=== PATIENT | male | born 1945 | race Caucasian/White ===

== ENCOUNTER 2020-07-09 21:35 | Inpatient (IN) | payer MEDICARE, OTHER ==
[2020-07-09] MEDS ORDERED: Dextrose 5% in Water 1,000 ML IV PRN (21:48)
[2020-07-09] MEDS ORDERED: Senokot S 8.6-50 MG TAB PO PRN (21:48)
[2020-07-09] MEDS ORDERED: Calcium Carbonate 500 MG ChewTAB PO PRN (21:48)
[2020-07-09] MEDS ORDERED: Guaifenesin DM 100-10/5 ML UDCUP PO PRN (21:48)
[2020-07-09] MEDS ORDERED: Acetaminophen 325 MG TAB PO PRN (21:48)
[2020-07-09] MEDS ORDERED: Dextrose 50% Abboject 50 ML SYRINGE SLOW IVP PRN (21:48)
[2020-07-09] MEDS ORDERED: Ondansetron PF 4 MG/2 ML Vial IVP PRN (21:48)
[2020-07-09] MEDS ORDERED: HYDROcodone/Acetaminophen 5/325 mg Tablet PO PRN ×2 (21:48)
[2020-07-09] MEDS ORDERED: Cyclobenzaprine 10 MG TAB PO SCH (22:00)
[2020-07-09 22:10] VITALS: BMI 25.7
[2020-07-09] MEDS: Sodium Chloride 0.9% 1,000 ML IV SCH (22:39)
[2020-07-10 01:06] LABS: SARS-CoV-2 NAA Rapid Test Not Detected (NotDetected)
[2020-07-10] MEDS: cefTRIAXone\\ROCEPHIN 2 GM in Sodium Chloride 0.9% 100 ML IVPB SCH ×2 (03:24→14:15)
[2020-07-10 04:34] LABS: #Basophils 0.1 10x3/uL (0.0-0.2); #Eosinphils 0.1 10x3/uL (0.0-0.5); #Neutrophils 8.1 10x3/uL (1.5-8.4); %Basophils 0.5 % (0.0-2.0); %Lymphocytes 19.5 % (18.0-47.0); %Monocytes 8.6 % (0.0-10.0); %Neutrophils 69.8 % (40.0-75.0); Hemoglobin 12.8 g/dL (13.5-17.5); Mean Corpuscular HGB CONC 33.7 g/dL (32.0-36.0); Mean Corpuscular Hemoglobin 31.8 pg (27.0-33.0); Mean Corpuscular Volume 94.3 fl (81.2-95.1); Mean Platelet Volume 9.8 fl (7.4-10.4); Platelet Count 188 10x3/uL (150-450); RBC Distribution Width 12.7 % (11.5-14.5); Red Blood Cell (RBC) Count 4.03 10x6/uL (4.32-5.72); White Blood Cell (WBC) Count 11.6 10x3/uL (3.5-10.5)
[2020-07-10 04:49] LABS: Anion Gap 14 mmol/L (10-20); BUN (Urea Nitrogen) 15 mg/dL (8.4-25.7); Calc. Creatinine Clearance 91 mL/min (70-130); Carbon Dioxide 23 mmol/L (23-31); Chloride 107 mmol/L (98-107); Glucose 144 mg/dL (83-110); Potassium 3.6 mmol/L (3.5-5.1); Sodium 140 mmol/L (136-145)
[2020-07-10] MEDS ORDERED: GLIPIZIDE PO SCH (08:00)
[2020-07-10] MEDS ORDERED: [UNRECOGNIZED DRUG - OTHER] PO SCH (08:00)
[2020-07-10] MEDS ORDERED: METFORMIN HCL PO SCH (08:00)
[2020-07-10] MEDS ORDERED: Fenofibrate Nanocrystallized 145 MG TAB PO SCH (09:00)
[2020-07-10] MEDS: Amlodipine 5 MG TAB PO SCH (10:39)
[2020-07-10] MEDS: Enoxaparin Sodium 40 MG/0.4 ML SYRINGE SC SCH (10:39)
[2020-07-10] MEDS: Aspirin 81 mg Enteric Coated Tablet PO SCH (10:39)
[2020-07-10] MEDS: Sodium Chloride 0.9% 1,000 ML IV SCH ×2 (10:46→18:40)
[2020-07-10] MEDS: Levothyroxine 150 MCG TAB PO SCH (10:46)
[2020-07-10] MEDS: Vancomycin HCl 1 GM in Sodium Chloride 0.9% 250 ML 250 ML IVPB SCH ×2 (10:46→23:57)
[2020-07-10] MEDS ORDERED: Vancomycin 1 GM in Premix Bag 1 BAG IVPB SCH (11:00)
[2020-07-10] MEDS: Atorvastatin Calcium 20 MG TAB PO SCH (20:44)
[2020-07-10] MEDS: hydrALAZINE 25 MG TAB PO SCH (20:44)
[2020-07-11] MEDS: cefTRIAXone\\ROCEPHIN 2 GM in Sodium Chloride 0.9% 100 ML IVPB SCH ×2 (03:05→13:25)
[2020-07-11 04:44] LABS: #Basophils 0.1 10x3/uL (0.0-0.2); #Eosinphils 0.4 10x3/uL (0.0-0.5); #Monocytes 1.1 10x3/uL (0.0-1.1); #Neutrophils 8.8 10x3/uL (1.5-8.4); %Basophils 0.6 % (0.0-2.0); %Eosinophils 3.2 % (0.0-6.0); %Lymphocytes 16.3 % (18.0-47.0); %Monocytes 8.6 % (0.0-10.0); Hemoglobin 12.8 g/dL (13.5-17.5); Mean Corpuscular HGB CONC 33.6 g/dL (32.0-36.0); Mean Corpuscular Volume 95.3 fl (81.2-95.1); Mean Platelet Volume 10.1 fl (7.4-10.4); Platelet Count 225 10x3/uL (150-450); RBC Distribution Width 12.5 % (11.5-14.5); White Blood Cell (WBC) Count 12.3 10x3/uL (3.5-10.5)
[2020-07-11 04:53] LABS: Anion Gap 14 mmol/L (10-20); BUN (Urea Nitrogen) 14 mg/dL (8.4-25.7); Calc. Creatinine Clearance 81 mL/min (70-130); Calcium 9.3 mg/dL (7.8-10.44); Carbon Dioxide 26 mmol/L (23-31); Chloride 103 mmol/L (98-107); Glucose 147 mg/dL (83-110); Potassium 3.5 mmol/L (3.5-5.1); Sodium 139 mmol/L (136-145)
[2020-07-11] MEDS: Sodium Chloride 0.9% 1,000 ML IV SCH ×3 (05:18→22:53)
[2020-07-11] MEDS ORDERED: Fenofibrate Nanocrystallized 145 MG TAB PO SCH (09:00)
[2020-07-11] MEDS: hydrALAZINE 25 MG TAB PO SCH ×2 (09:51→21:08)
[2020-07-11] MEDS: Enoxaparin Sodium 40 MG/0.4 ML SYRINGE SC SCH (09:51)
[2020-07-11] MEDS: Aspirin 81 mg Enteric Coated Tablet PO SCH (09:51)
[2020-07-11] MEDS: Amlodipine 5 MG TAB PO SCH (09:51)
[2020-07-11] MEDS: Levothyroxine 150 MCG TAB PO SCH (09:55)
[2020-07-11] MEDS: Vancomycin HCl 1 GM in Sodium Chloride 0.9% 250 ML 250 ML IVPB SCH (09:58)
[2020-07-11 10:32] LABS: Vancomycin, Trough 10.3 ug/mL
[2020-07-11] MEDS: Atorvastatin Calcium 20 MG TAB PO SCH (21:09)
[2020-07-11] MEDS: Cyclobenzaprine 10 MG TAB PO PRN (21:09)
[2020-07-11] MEDS: HumaLOG 300 UNITS/3 ML VIAL SC PRN (21:12)
[2020-07-11] MEDS: VANCOMYCIN 1.25 GM/250 ML BAG 1.25 GM in Premix Bag 1 BAG IVPB SCH (22:51)
[2020-07-12] MEDS: cefTRIAXone\\ROCEPHIN 2 GM in Sodium Chloride 0.9% 100 ML IVPB SCH ×2 (02:30→15:30)
[2020-07-12 05:29] LABS: #Basophils 0.1 10x3/uL (0.0-0.2); #Eosinphils 0.4 10x3/uL (0.0-0.5); #Monocytes 0.9 10x3/uL (0.0-1.1); %Basophils 0.6 % (0.0-2.0); %Eosinophils 3.7 % (0.0-6.0); %Lymphocytes 15.4 % (18.0-47.0); %Monocytes 7.9 % (0.0-10.0); %Neutrophils 71.8 % (40.0-75.0); Hemoglobin 12.8 g/dL (13.5-17.5); Mean Corpuscular HGB CONC 33.6 g/dL (32.0-36.0); Mean Corpuscular Hemoglobin 31.6 pg (27.0-33.0); Mean Corpuscular Volume 94.1 fl (81.2-95.1); Mean Platelet Volume 9.9 fl (7.4-10.4); Platelet Count 232 10x3/uL (150-450); RBC Distribution Width 12.7 % (11.5-14.5); Red Blood Cell (RBC) Count 4.05 10x6/uL (4.32-5.72); White Blood Cell (WBC) Count 11.2 10x3/uL (3.5-10.5)
[2020-07-12 05:40] LABS: Anion Gap 16 mmol/L (10-20); BUN (Urea Nitrogen) 11 mg/dL (8.4-25.7); Calc. Creatinine Clearance 97 mL/min (70-130); Calcium 9.2 mg/dL (7.8-10.44); Carbon Dioxide 22 mmol/L (23-31); Chloride 105 mmol/L (98-107); Glucose 157 mg/dL (83-110); Potassium 3.6 mmol/L (3.5-5.1); Sodium 139 mmol/L (136-145)
[2020-07-12] MEDS: Amlodipine 5 MG TAB PO SCH (09:39)
[2020-07-12] MEDS: hydrALAZINE 25 MG TAB PO SCH ×2 (09:39→20:13)
[2020-07-12] MEDS: Enoxaparin Sodium 40 MG/0.4 ML SYRINGE SC SCH (09:40)
[2020-07-12] MEDS: Aspirin 81 mg Enteric Coated Tablet PO SCH (09:40)
[2020-07-12] MEDS: Levothyroxine 150 MCG TAB PO SCH (09:40)
[2020-07-12] MEDS: VANCOMYCIN 1.25 GM/250 ML BAG 1.25 GM in Premix Bag 1 BAG IVPB SCH ×2 (12:30→22:23)
[2020-07-12] MEDS: Sodium Chloride 0.9% 1,000 ML IV SCH ×2 (14:05→20:11)
[2020-07-12] MEDS ORDERED: Amlodipine 10 MG TAB PO SCH (18:30)
[2020-07-12] MEDS: Atorvastatin Calcium 20 MG TAB PO SCH (20:13)
[2020-07-12] MEDS: Cyclobenzaprine 10 MG TAB PO PRN (20:14)
[2020-07-13] MEDS: cefTRIAXone\\ROCEPHIN 2 GM in Sodium Chloride 0.9% 100 ML IVPB SCH (01:10)
[2020-07-13 05:09] LABS: #Basophils 0.1 10x3/uL (0.0-0.2); #Eosinphils 0.5 10x3/uL (0.0-0.5); #Neutrophils 8.6 10x3/uL (1.5-8.4); %Basophils 0.6 % (0.0-2.0); %Eosinophils 4.3 % (0.0-6.0); %Lymphocytes 15.8 % (18.0-47.0); %Monocytes 8.5 % (0.0-10.0); %Neutrophils 70.4 % (40.0-75.0); Hemoglobin 13.1 g/dL (13.5-17.5); Mean Corpuscular HGB CONC 32.8 g/dL (32.0-36.0); Mean Corpuscular Hemoglobin 31.6 pg (27.0-33.0); Mean Corpuscular Volume 96.4 fl (81.2-95.1); Mean Platelet Volume 9.8 fl (7.4-10.4); Platelet Count 257 10x3/uL (150-450); RBC Distribution Width 12.7 % (11.5-14.5); Red Blood Cell (RBC) Count 4.14 10x6/uL (4.32-5.72); White Blood Cell (WBC) Count 12.2 10x3/uL (3.5-10.5)
[2020-07-13] MEDS: Sodium Chloride 0.9% 1,000 ML IV SCH (05:09)
[2020-07-13 05:32] LABS: Anion Gap 13 mmol/L (10-20); BUN (Urea Nitrogen) 10 mg/dL (8.4-25.7); Calc. Creatinine Clearance 88 mL/min (70-130); Calcium 9.2 mg/dL (7.8-10.44); Carbon Dioxide 25 mmol/L (23-31); Chloride 107 mmol/L (98-107); Glucose 151 mg/dL (83-110); Potassium 3.5 mmol/L (3.5-5.1); Sodium 141 mmol/L (136-145)
[2020-07-13] MEDS: Levothyroxine 150 MCG TAB PO SCH (09:00)
[2020-07-13] MEDS: hydrALAZINE 25 MG TAB PO SCH ×2 (09:17→21:02)
[2020-07-13] MEDS: Enoxaparin Sodium 40 MG/0.4 ML SYRINGE SC SCH (09:18)
[2020-07-13] MEDS: Aspirin 81 mg Enteric Coated Tablet PO SCH (09:18)
[2020-07-13] MEDS: Amlodipine 10 MG TAB PO SCH (09:18)
[2020-07-13 10:07] LABS: Vancomycin, Trough 16.4 ug/mL
[2020-07-13] MEDS: VANCOMYCIN 1.25 GM/250 ML BAG 1.25 GM in Premix Bag 1 BAG IVPB SCH (11:02)
[2020-07-13] MEDS: HumaLOG 300 UNITS/3 ML VIAL SC PRN (19:10)
[2020-07-13] MEDS: Atorvastatin Calcium 20 MG TAB PO SCH (21:02)
[2020-07-14 04:49] LABS: #Basophils 0.1 10x3/uL (0.0-0.2); #Eosinphils 0.4 10x3/uL (0.0-0.5); #Monocytes 0.9 10x3/uL (0.0-1.1); #Neutrophils 9.3 10x3/uL (1.5-8.4); %Basophils 0.6 % (0.0-2.0); %Eosinophils 3.2 % (0.0-6.0); %Lymphocytes 12.7 % (18.0-47.0); %Monocytes 7.6 % (0.0-10.0); %Neutrophils 75.3 % (40.0-75.0); Hemoglobin 13.1 g/dL (13.5-17.5); Mean Corpuscular HGB CONC 33.4 g/dL (32.0-36.0); Mean Corpuscular Hemoglobin 31.3 pg (27.0-33.0); Mean Corpuscular Volume 93.8 fl (81.2-95.1); Mean Platelet Volume 9.6 fl (7.4-10.4); Platelet Count 245 10x3/uL (150-450); RBC Distribution Width 12.9 % (11.5-14.5); Red Blood Cell (RBC) Count 4.18 10x6/uL (4.32-5.72); White Blood Cell (WBC) Count 12.4 10x3/uL (3.5-10.5)
[2020-07-14 04:56] LABS: Anion Gap 12 mmol/L (10-20); BUN (Urea Nitrogen) 10 mg/dL (8.4-25.7); Calc. Creatinine Clearance 91 mL/min (70-130); Calcium 9.3 mg/dL (7.8-10.44); Carbon Dioxide 23 mmol/L (23-31); Chloride 107 mmol/L (98-107); Glucose 179 mg/dL (83-110); Potassium 3.5 mmol/L (3.5-5.1); Sodium 138 mmol/L (136-145)
[2020-07-14] MEDS: hydrALAZINE 25 MG TAB PO SCH ×2 (07:06→21:04)
[2020-07-14] MEDS: Levothyroxine 150 MCG TAB PO SCH (07:06)
[2020-07-14] MEDS: Enoxaparin Sodium 40 MG/0.4 ML SYRINGE SC SCH (08:06)
[2020-07-14] MEDS: Amlodipine 10 MG TAB PO SCH (08:06)
[2020-07-14] MEDS: Aspirin 81 mg Enteric Coated Tablet PO SCH (08:06)
[2020-07-14] MEDS: HumaLOG 300 UNITS/3 ML VIAL SC PRN ×2 (12:57→18:02)
[2020-07-14] MEDS: Sodium Chloride 0.9% 1,000 ML IV SCH ×2 (19:13→19:14)
[2020-07-14] MEDS: Atorvastatin Calcium 20 MG TAB PO SCH (21:04)
[2020-07-15] MEDS: Sodium Chloride 0.9% 1,000 ML IV SCH ×2 (05:34→10:06)
[2020-07-15 05:41] LABS: #Basophils 0.1 10x3/uL (0.0-0.2); #Eosinphils 0.4 10x3/uL (0.0-0.5); #Monocytes 1.1 10x3/uL (0.0-1.1); #Neutrophils 8.9 10x3/uL (1.5-8.4); %Basophils 0.5 % (0.0-2.0); %Eosinophils 2.9 % (0.0-6.0); %Lymphocytes 16.1 % (18.0-47.0); %Monocytes 8.6 % (0.0-10.0); %Neutrophils 71.5 % (40.0-75.0); Hemoglobin 13.6 g/dL (13.5-17.5); Mean Corpuscular HGB CONC 33.7 g/dL (32.0-36.0); Mean Corpuscular Hemoglobin 31.6 pg (27.0-33.0); Mean Corpuscular Volume 93.7 fl (81.2-95.1); Mean Platelet Volume 9.8 fl (7.4-10.4); Platelet Count 272 10x3/uL (150-450); RBC Distribution Width 12.7 % (11.5-14.5); White Blood Cell (WBC) Count 12.4 10x3/uL (3.5-10.5)
[2020-07-15 05:57] LABS: Anion Gap 13 mmol/L (10-20); BUN (Urea Nitrogen) 9 mg/dL (8.4-25.7); Calc. Creatinine Clearance 96 mL/min (70-130); Calcium 9.4 mg/dL (7.8-10.44); Carbon Dioxide 22 mmol/L (23-31); Chloride 106 mmol/L (98-107); Glucose 186 mg/dL (83-110); Potassium 3.4 mmol/L (3.5-5.1); Sodium 138 mmol/L (136-145)
[2020-07-15] MEDS: Levothyroxine 150 MCG TAB PO SCH (06:25)
[2020-07-15] MEDS: Aspirin 81 mg Enteric Coated Tablet PO SCH (09:58)
[2020-07-15] MEDS: Enoxaparin Sodium 40 MG/0.4 ML SYRINGE SC SCH (09:58)
[2020-07-15] MEDS: Amlodipine 10 MG TAB PO SCH (09:58)
[2020-07-15] MEDS: hydrALAZINE 25 MG TAB PO SCH ×2 (09:58→20:47)
[2020-07-15] MEDS: HumaLOG 300 UNITS/3 ML VIAL SC PRN ×2 (11:53→17:29)
[2020-07-15] MEDS: Atorvastatin Calcium 20 MG TAB PO SCH (20:47)
[2020-07-16 06:14] LABS: #Basophils 0.1 10x3/uL (0.0-0.2); #Eosinphils 0.3 10x3/uL (0.0-0.5); #Monocytes 1.1 10x3/uL (0.0-1.1); %Basophils 0.6 % (0.0-2.0); %Eosinophils 2.3 % (0.0-6.0); %Lymphocytes 18.3 % (18.0-47.0); %Monocytes 9.5 % (0.0-10.0); %Neutrophils 68.8 % (40.0-75.0); Anion Gap 11 mmol/L (10-20); BUN (Urea Nitrogen) 11 mg/dL (8.4-25.7); Calc. Creatinine Clearance 92 mL/min (70-130); Calcium 9.4 mg/dL (7.8-10.44); Carbon Dioxide 25 mmol/L (23-31); Chloride 105 mmol/L (98-107); Glucose 171 mg/dL (83-110); Hemoglobin 13.4 g/dL (13.5-17.5); Mean Corpuscular HGB CONC 33.8 g/dL (32.0-36.0); Mean Corpuscular Hemoglobin 31.6 pg (27.0-33.0); Mean Corpuscular Volume 93.6 fl (81.2-95.1); Mean Platelet Volume 9.7 fl (7.4-10.4); Platelet Count 259 10x3/uL (150-450); Potassium 3.4 mmol/L (3.5-5.1); RBC Distribution Width 13.1 % (11.5-14.5); Red Blood Cell (RBC) Count 4.24 10x6/uL (4.32-5.72); Sodium 138 mmol/L (136-145); White Blood Cell (WBC) Count 11.6 10x3/uL (3.5-10.5)
[2020-07-16] MEDS: Levothyroxine 150 MCG TAB PO SCH (08:05)
[2020-07-16] MEDS: Amlodipine 10 MG TAB PO SCH (08:05)
[2020-07-16] MEDS: Aspirin 81 mg Enteric Coated Tablet PO SCH (08:05)
[2020-07-16] MEDS: Enoxaparin Sodium 40 MG/0.4 ML SYRINGE SC SCH (08:06)
[2020-07-16] MEDS ORDERED: Potassium Chloride 20 MEQ TAB PO SCH (08:45)
[2020-07-16] MEDS: hydrALAZINE 25 MG TAB PO SCH ×2 (08:58→20:31)
[2020-07-16] MEDS: HumaLOG 300 UNITS/3 ML VIAL SC PRN (12:42)
[2020-07-16] MEDS: Atorvastatin Calcium 20 MG TAB PO SCH (20:31)
[2020-07-17] MEDS: Levothyroxine 150 MCG TAB PO SCH (05:09)
[2020-07-17] MEDS: HumaLOG 300 UNITS/3 ML VIAL SC PRN ×3 (05:27→23:51)
[2020-07-17 06:54] LABS: #Basophils 0.1 10x3/uL (0.0-0.2); #Eosinphils 0.3 10x3/uL (0.0-0.5); #Neutrophils 7.5 10x3/uL (1.5-8.4); %Basophils 0.6 % (0.0-2.0); %Lymphocytes 19.8 % (18.0-47.0); %Monocytes 9.2 % (0.0-10.0); Hemoglobin 13.5 g/dL (13.5-17.5); Mean Corpuscular HGB CONC 33.5 g/dL (32.0-36.0); Mean Corpuscular Hemoglobin 31.6 pg (27.0-33.0); Mean Corpuscular Volume 94.4 fl (81.2-95.1); Mean Platelet Volume 9.8 fl (7.4-10.4); Platelet Count 285 10x3/uL (150-450); RBC Distribution Width 13.1 % (11.5-14.5); Red Blood Cell (RBC) Count 4.27 10x6/uL (4.32-5.72); White Blood Cell (WBC) Count 11.3 10x3/uL (3.5-10.5)
[2020-07-17 07:03] LABS: Anion Gap 11 mmol/L (10-20); BUN (Urea Nitrogen) 12 mg/dL (8.4-25.7); Calc. Creatinine Clearance 88 mL/min (70-130); Calcium 9.5 mg/dL (7.8-10.44); Carbon Dioxide 26 mmol/L (23-31); Chloride 104 mmol/L (98-107); Glucose 160 mg/dL (83-110); Magnesium 1.4 mg/dL (1.6-2.6); Potassium 3.9 mmol/L (3.5-5.1); Sodium 137 mmol/L (136-145)
[2020-07-17] MEDS ORDERED: Magnesium Sulfate 3 GM in Sodium Chloride 0.9% 100 ML IVPB SCH (08:00)
[2020-07-17] MEDS: Enoxaparin Sodium 40 MG/0.4 ML SYRINGE SC SCH (08:53)
[2020-07-17] MEDS: hydrALAZINE 25 MG TAB PO SCH ×2 (08:54→21:47)
[2020-07-17] MEDS: Amlodipine 10 MG TAB PO SCH (08:54)
[2020-07-17] MEDS: Cyclobenzaprine 10 MG TAB PO PRN (08:54)
[2020-07-17] MEDS: Aspirin 81 mg Enteric Coated Tablet PO SCH (08:54)
[2020-07-17] MEDS: Atorvastatin Calcium 20 MG TAB PO SCH (21:47)
[2020-07-18 05:18] LABS: #Basophils 0.1 10x3/uL (0.0-0.2); #Eosinphils 0.4 10x3/uL (0.0-0.5); #Neutrophils 7.5 10x3/uL (1.5-8.4); %Basophils 0.6 % (0.0-2.0); %Eosinophils 3.3 % (0.0-6.0); %Lymphocytes 20.6 % (18.0-47.0); %Monocytes 8.6 % (0.0-10.0); %Neutrophils 66.5 % (40.0-75.0); Hemoglobin 13.4 g/dL (13.5-17.5); Mean Corpuscular HGB CONC 33.9 g/dL (32.0-36.0); Mean Corpuscular Hemoglobin 31.9 pg (27.0-33.0); Mean Platelet Volume 9.5 fl (7.4-10.4); Platelet Count 269 10x3/uL (150-450); RBC Distribution Width 12.8 % (11.5-14.5); White Blood Cell (WBC) Count 11.4 10x3/uL (3.5-10.5)
[2020-07-18 05:27] LABS: Anion Gap 13 mmol/L (10-20); BUN (Urea Nitrogen) 15 mg/dL (8.4-25.7); Calc. Creatinine Clearance 76 mL/min (70-130); Calcium 9.5 mg/dL (7.8-10.44); Carbon Dioxide 25 mmol/L (23-31); Chloride 103 mmol/L (98-107); Glucose 171 mg/dL (83-110); Potassium 3.7 mmol/L (3.5-5.1); Sodium 137 mmol/L (136-145)
[2020-07-18] MEDS: Levothyroxine 150 MCG TAB PO SCH (05:29)
[2020-07-18] MEDS: HumaLOG 300 UNITS/3 ML VIAL SC PRN ×4 (06:03→23:14)
[2020-07-18] MEDS ORDERED: Magnesium Sulfate 3 GM in Sodium Chloride 0.9% 100 ML IVPB SCH (08:15)
[2020-07-18] MEDS: Enoxaparin Sodium 40 MG/0.4 ML SYRINGE SC SCH (08:24)
[2020-07-18] MEDS: Amlodipine 10 MG TAB PO SCH (08:25)
[2020-07-18] MEDS: Aspirin 81 mg Enteric Coated Tablet PO SCH (08:25)
[2020-07-18] MEDS: hydrALAZINE 25 MG TAB PO SCH ×3 (08:25→21:09)
[2020-07-18] MEDS: Cyclobenzaprine 10 MG TAB PO PRN (08:25)
[2020-07-18] MEDS: Atorvastatin Calcium 20 MG TAB PO SCH (21:09)
[2020-07-19] MEDS: Levothyroxine 150 MCG TAB PO SCH (06:21)
[2020-07-19 06:39] LABS: #Basophils 0.1 10x3/uL (0.0-0.2); #Eosinphils 0.3 10x3/uL (0.0-0.5); #Monocytes 0.9 10x3/uL (0.0-1.1); #Neutrophils 7.3 10x3/uL (1.5-8.4); %Basophils 0.7 % (0.0-2.0); %Eosinophils 3.1 % (0.0-6.0); %Lymphocytes 20.6 % (18.0-47.0); %Monocytes 8.6 % (0.0-10.0); %Neutrophils 66.6 % (40.0-75.0); Hemoglobin 13.6 g/dL (13.5-17.5); Mean Corpuscular HGB CONC 33.1 g/dL (32.0-36.0); Mean Corpuscular Hemoglobin 31.5 pg (27.0-33.0); Mean Corpuscular Volume 95.1 fl (81.2-95.1); Mean Platelet Volume 9.8 fl (7.4-10.4); Platelet Count 324 10x3/uL (150-450); RBC Distribution Width 12.8 % (11.5-14.5); Red Blood Cell (RBC) Count 4.32 10x6/uL (4.32-5.72)
[2020-07-19 07:22] LABS: Anion Gap 13 mmol/L (10-20); BUN (Urea Nitrogen) 19 mg/dL (8.4-25.7); Calc. Creatinine Clearance 80 mL/min (70-130); Calcium 9.4 mg/dL (7.8-10.44); Carbon Dioxide 24 mmol/L (23-31); Chloride 103 mmol/L (98-107); Glucose 159 mg/dL (83-110); Potassium 4.1 mmol/L (3.5-5.1); Sodium 136 mmol/L (136-145)
[2020-07-19] MEDS: Aspirin 81 mg Enteric Coated Tablet PO SCH (08:38)
[2020-07-19] MEDS: hydrALAZINE 25 MG TAB PO SCH ×2 (08:38→14:30)
[2020-07-19] MEDS: Amlodipine 10 MG TAB PO SCH (08:39)
[2020-07-19] MEDS: Enoxaparin Sodium 40 MG/0.4 ML SYRINGE SC SCH (08:39)
[2020-07-19 12:15] VITALS: TEMP 98
[2020-07-19 12:47] VITALS: BP 166/74
[2020-07-19] MEDS: HumaLOG 300 UNITS/3 ML VIAL SC PRN (13:20)
== END 2020-07-19 16:45 | disposition home health service (06) | DRG 551 ==
LOC: CSHTELE 21:35
PROVIDERS: ADMIT Student in an Organized Health Care Education/Training Program; ATTEND Internal Medicine
DX: M43.6 Torticollis (principal); G93.41 Metabolic encephalopathy; E87.2 Acidosis; Z20.822 Contact with and (suspected) exposure to COVID-19; M54.2 Cervicalgia; S10.93XA Contusion of unspecified part of neck, initial encounter; R50.9 Fever, unspecified; E78.5 Hyperlipidemia, unspecified; E03.9 Hypothyroidism, unspecified; E11.22 Type 2 diabetes mellitus with diabetic chronic kidney disease; I12.9 Hypertensive chronic kidney disease with stage 1 through stage 4 chronic kidney disease, or unspecified chronic kidney disease; N18.2 Chronic kidney disease, stage 2 (mild); E11.65 Type 2 diabetes mellitus with hyperglycemia; M19.90 Unspecified osteoarthritis, unspecified site; F03.90 Unspecified dementia, unspecified severity, without behavioral disturbance, psychotic disturbance, mood disturbance, and anxiety; Z79.84 Long term (current) use of oral hypoglycemic drugs; Z79.890 Hormone replacement therapy; Z79.899 Other long term (current) drug therapy
CPT/HCPCS: 0240U; 36415; 36416; 70551; 72141; 80048; 80202; 83735; 84145; 85025; 85652; 86140; J0696; J1650; J1815; J3370; J3475; J3490; J7050

== ENCOUNTER 2021-12-23 19:18 | Inpatient (IN) | payer MEDICARE ==
[2021-12-23] MEDS ORDERED: Guaifenesin DM 100-10/5 ML UDCUP PO PRN (20:19)
[2021-12-23] MEDS ORDERED: Senokot S 8.6-50 MG TAB PO PRN (20:19)
[2021-12-23] MEDS ORDERED: Calcium Carbonate 500 MG ChewTAB PO PRN (20:19)
[2021-12-23] MEDS ORDERED: Dextrose 5% in Water 1,000 ML IV PRN (20:19)
[2021-12-23] MEDS ORDERED: Dextrose 50% Abboject 50 ML SYRINGE SLOW IVP PRN (20:19)
[2021-12-23] MEDS ORDERED: Ondansetron PF 4 MG/2 ML Vial IVP PRN (20:19)
[2021-12-23] MEDS ORDERED: Acetaminophen 325 MG TAB PO PRN (20:19)
[2021-12-23 20:23] LABS: ALT (SGPT) 25 U/L (8-55); AST (SGOT) 40 U/L (5-34); Albumin 3.6 g/dL (3.4-4.8); Alkaline Phosphatase 44 U/L (40-110); Anion Gap 14 mmol/L (10-20); BUN (Urea Nitrogen) 11 mg/dL (8.4-25.7); Bilirubin, Total 2.5 mg/dL (0.2-1.2); CK (CPK) 685 U/L (30-200); Calc. Creatinine Clearance 0 mL/min (70-130); Calcium 8.6 mg/dL (7.8-10.44); Carbon Dioxide 23 mmol/L (23-31); Chloride 102 mmol/L (98-107); Estimated GFR 61; Globulin 3.2 g/dL (2.4-3.5); Glucose 178 mg/dL (83-110); Potassium 3.7 mmol/L (3.5-5.1); Protein, Total 6.8 g/dL (5.8-8.1); Sodium 135 mmol/L (136-145)
[2021-12-23] MEDS ORDERED: Magnesium Sulfate/D5W 1 GM/100 ML BAG IVPB SCH (20:30)
[2021-12-23] MEDS ORDERED: Labetalol HCl 100 MG/20 ML VIAL ONE (21:23)
[2021-12-23 21:28] LABS: SARS-CoV-2 NAA Rapid Test Not Detected (NotDetected)
[2021-12-23] MEDS ORDERED: Famotidine 20 MG TAB PO SCH (22:30)
[2021-12-23] MEDS ORDERED: Tamsulosin HCl 0.4 MG CAP PO SCH (22:30)
[2021-12-23] MEDS: HYDROcodone/Acetaminophen 5/325 mg Tablet PO PRN (22:54)
[2021-12-23] MEDS ORDERED: Levothyroxine Sodium 75 MCG TAB PO SCH (23:00)
[2021-12-23] MEDS ORDERED: Lactated Ringer's 1,000 ML IV SCH (23:00)
[2021-12-23 23:51] VITALS: BMI 23.4
[2021-12-24 05:41] LABS: #Eosinphils 0.1 10x3/uL (0.0-0.5); #Monocytes 0.9 10x3/uL (0.0-1.1); #Neutrophils 8.1 10x3/uL (1.5-8.4); %Basophils 0.4 % (0.0-2.0); %Eosinophils 0.7 % (0.0-6.0); %Monocytes 7.9 % (0.0-10.0); %Neutrophils 71.7 % (40.0-75.0); Hemoglobin 13.4 g/dL (13.5-17.5); Mean Corpuscular HGB CONC 34.8 g/dL (32.0-36.0); Mean Corpuscular Hemoglobin 35.4 pg (27.0-33.0); Mean Corpuscular Volume 101.6 fl (81.2-95.1); Mean Platelet Volume 10.2 fl (7.4-10.4); Platelet Count 185 10x3/uL (150-450); RBC Distribution Width 13.2 % (11.5-14.5); Red Blood Cell (RBC) Count 3.79 10x6/uL (4.32-5.72); White Blood Cell (WBC) Count 11.3 10x3/uL (3.5-10.5)
[2021-12-24 05:59] LABS: ALT (SGPT) 25 U/L (8-55); AST (SGOT) 33 U/L (5-34); Albumin 3.4 g/dL (3.4-4.8); Alkaline Phosphatase 44 U/L (40-110); Anion Gap 12 mmol/L (10-20); BUN (Urea Nitrogen) 9 mg/dL (8.4-25.7); Bilirubin, Total 2.2 mg/dL (0.2-1.2); CK (CPK) 581 U/L (30-200); Calc. Creatinine Clearance 61 mL/min (70-130); Calcium 8.4 mg/dL (7.8-10.44); Carbon Dioxide 25 mmol/L (23-31); Chloride 105 mmol/L (98-107); Estimated GFR 69; Globulin 3.2 g/dL (2.4-3.5); Glucose 152 mg/dL (83-110); Magnesium 1.8 mg/dL (1.6-2.6); Potassium 3.8 mmol/L (3.5-5.1); Protein, Total 6.6 g/dL (5.8-8.1); Sodium 138 mmol/L (136-145)
[2021-12-24] MEDS ORDERED: Levothyroxine 150 MCG TAB PO SCH (06:00)
[2021-12-24] MEDS ORDERED: metFORMIN 500 MG TAB PO SCH (08:00)
[2021-12-24] MEDS ORDERED: glipiZIDE 5 MG TAB PO SCH (08:00)
[2021-12-24 08:03] LABS: Thyroid Stimulating Hormone 38.6803 uIU/mL (0.35-4.94)
[2021-12-24 08:22] LABS: Free T4 (Free Thyroxine) Less than 0.40 ng/dL (0.70-1.48)
[2021-12-24] MEDS ORDERED: Non-Formulary Medication 1 EACH (Mecobalamin [B12 Active] 1,000 MCG Tab.Chew) PO SCH (09:00)
[2021-12-24] MEDS ORDERED: SODIUM CHLORIDE IVPB SCH (09:30)
[2021-12-24] MEDS ORDERED: LEVOTHYROXINE SODIUM IVPB SCH (09:30)
[2021-12-24] MEDS ORDERED: ADMIXTURE FEE IVPB SCH (09:30)
[2021-12-24] MEDS: Magnesium Oxide 400 MG TAB PO SCH (09:39)
[2021-12-24] MEDS: Folic Acid 1 MG TAB PO SCH (09:40)
[2021-12-24] MEDS: Aspirin 81 mg Enteric Coated Tablet PO SCH (09:40)
[2021-12-24] MEDS: Multivitamin W/ Minerals 1 TAB PO SCH (09:44)
[2021-12-24] MEDS: Finasteride 5 MG TAB PO SCH (09:44)
[2021-12-24] MEDS: Famotidine 20 MG TAB PO SCH ×2 (09:44→22:46)
[2021-12-24] MEDS: Amlodipine 10 MG TAB PO SCH (09:44)
[2021-12-24] MEDS: Enoxaparin Sodium 40 MG/0.4 ML SYRINGE SC SCH (09:44)
[2021-12-24] MEDS: cefTRIAXone\\ROCEPHIN 1 GM in Sodium Chloride 0.9% 100 ML IVPB SCH (11:46)
[2021-12-24] MEDS: Lactated Ringer's 1,000 ML IV SCH (11:46)
[2021-12-24] MEDS: HumaLOG 300 UNITS/3 ML VIAL SC PRN ×2 (13:22→18:40)
[2021-12-24 13:32] LABS: Vitamin B12 452 pg/mL (211-911)
[2021-12-24] MEDS: HYDROcodone/Acetaminophen 5/325 mg Tablet PO PRN (15:48)
[2021-12-24] MEDS ORDERED: Thiamine 100 MG TAB PO SCH (16:45)
[2021-12-24] MEDS ORDERED: Tamsulosin HCl 0.4 MG CAP PO SCH (21:00)
[2021-12-24] MEDS ORDERED: Oxybutynin 5 MG TAB PO PRN (23:36)
[2021-12-24] MEDS ORDERED: traMADol HCl 50 MG TAB PO SCH (23:45)
[2021-12-25] MEDS ORDERED: Nitroglycerin 2% Ointment 1 INCH/1 GM Packet TOP SCH (04:30)
[2021-12-25 05:22] LABS: #Basophils 0.1 10x3/uL (0.0-0.2); #Eosinphils 0.2 10x3/uL (0.0-0.5); #Monocytes 0.8 10x3/uL (0.0-1.1); #Neutrophils 7.6 10x3/uL (1.5-8.4); %Basophils 0.5 % (0.0-2.0); %Eosinophils 1.9 % (0.0-6.0); %Lymphocytes 21.4 % (18.0-47.0); %Monocytes 7.4 % (0.0-10.0); %Neutrophils 68.5 % (40.0-75.0); Hemoglobin 13.8 g/dL (13.5-17.5); Mean Corpuscular HGB CONC 35.7 g/dL (32.0-36.0); Mean Corpuscular Hemoglobin 35.8 pg (27.0-33.0); Mean Corpuscular Volume 100.5 fl (81.2-95.1); Mean Platelet Volume 10.7 fl (7.4-10.4); Platelet Count 200 10x3/uL (150-450); RBC Distribution Width 13.1 % (11.5-14.5); Red Blood Cell (RBC) Count 3.85 10x6/uL (4.32-5.72); White Blood Cell (WBC) Count 11.2 10x3/uL (3.5-10.5)
[2021-12-25 05:45] LABS: ALT (SGPT) 24 U/L (8-55); AST (SGOT) 30 U/L (5-34); Albumin 3.4 g/dL (3.4-4.8); Alkaline Phosphatase 47 U/L (40-110); Anion Gap 15 mmol/L (10-20); BUN (Urea Nitrogen) 14 mg/dL (8.4-25.7); Bilirubin, Total 1.2 mg/dL (0.2-1.2); Calc. Creatinine Clearance 60 mL/min (70-130); Calcium 8.8 mg/dL (7.8-10.44); Carbon Dioxide 24 mmol/L (23-31); Chloride 102 mmol/L (98-107); Estimated GFR 67; Globulin 3.3 g/dL (2.4-3.5); Glucose 160 mg/dL (83-110); Potassium 3.8 mmol/L (3.5-5.1); Protein, Total 6.7 g/dL (5.8-8.1); Sodium 137 mmol/L (136-145)
[2021-12-25 05:50] LABS: Phosphorus 2.2 mg/dL (2.3-4.7)
[2021-12-25] MEDS ORDERED: Levothyroxine 100 MCG SDV IVP SCH (06:00)
[2021-12-25] MEDS: Enoxaparin Sodium 40 MG/0.4 ML SYRINGE SC SCH (08:01)
[2021-12-25] MEDS: Multivitamin W/ Minerals 1 TAB PO SCH (08:01)
[2021-12-25] MEDS: Magnesium Oxide 400 MG TAB PO SCH (08:01)
[2021-12-25] MEDS: Famotidine 20 MG TAB PO SCH (08:02)
[2021-12-25] MEDS: Finasteride 5 MG TAB PO SCH (08:02)
[2021-12-25] MEDS: Folic Acid 1 MG TAB PO SCH (08:02)
[2021-12-25] MEDS: Aspirin 81 mg Enteric Coated Tablet PO SCH (08:02)
[2021-12-25] MEDS: Amlodipine 10 MG TAB PO SCH (08:02)
[2021-12-25] MEDS: Lactated Ringer's 1,000 ML IV SCH (08:02)
[2021-12-25] MEDS ORDERED: Thiamine 100 MG TAB PO SCH (09:00)
[2021-12-25] MEDS: cefTRIAXone\\ROCEPHIN 1 GM in Sodium Chloride 0.9% 100 ML IVPB SCH (11:48)
[2021-12-25] MEDS: HumaLOG 300 UNITS/3 ML VIAL SC PRN (11:48)
[2021-12-25 16:07] VITALS: BP 170/91; TEMP 97.9
== END 2021-12-25 18:34 | DRG 81 ==
LOC: CSHERS 19:18 → CSHTELE 22:17
PROVIDERS: ADMIT Student in an Organized Health Care Education/Training Program; ATTEND Internal Medicine
DX: E03.5 Myxedema coma (principal); M62.82 Rhabdomyolysis; N17.9 Acute kidney failure, unspecified; G93.49 Other encephalopathy; Z20.822 Contact with and (suspected) exposure to COVID-19; E78.5 Hyperlipidemia, unspecified; E03.9 Hypothyroidism, unspecified; F03.90 Unspecified dementia, unspecified severity, without behavioral disturbance, psychotic disturbance, mood disturbance, and anxiety; E83.42 Hypomagnesemia; N18.2 Chronic kidney disease, stage 2 (mild); E11.65 Type 2 diabetes mellitus with hyperglycemia; E11.22 Type 2 diabetes mellitus with diabetic chronic kidney disease; I12.9 Hypertensive chronic kidney disease with stage 1 through stage 4 chronic kidney disease, or unspecified chronic kidney disease; M19.90 Unspecified osteoarthritis, unspecified site; E86.0 Dehydration; D63.1 Anemia in chronic kidney disease; Z79.82 Long term (current) use of aspirin; Z79.899 Other long term (current) drug therapy; Z79.890 Hormone replacement therapy
CPT/HCPCS: 36415; 36416; 70551; 80053; 82533; 82550; 82607; 83735; 84100; 84439; 84443; 85025; 93005; 96361; 96374; J0696; J1650; J1815; J3475; J3490; J7120; U0002

== ENCOUNTER 2022-01-17 17:47 | Emergency (ER) | payer MEDICARE, MEDICAID ==
[2022-01-17 18:27] LABS: #Basophils 0.1 10x3/uL (0.0-0.2); #Eosinphils 0.1 10x3/uL (0.0-0.5); #Monocytes 1.1 10x3/uL (0.0-1.1); #Neutrophils 6.5 10x3/uL (1.5-8.4); %Basophils 0.5 % (0.0-2.0); %Eosinophils 0.5 % (0.0-6.0); %Lymphocytes 15.6 % (18.0-47.0); %Monocytes 11.7 % (0.0-10.0); %Neutrophils 70.9 % (40.0-75.0); Hemoglobin 11.8 g/dL (13.5-17.5); Mean Corpuscular HGB CONC 34.2 g/dL (32.0-36.0); Mean Corpuscular Hemoglobin 34.5 pg (27.0-33.0); Mean Corpuscular Volume 100.9 fl (81.2-95.1); Mean Platelet Volume 8.8 fl (7.4-10.4); Platelet Count 310 10x3/uL (150-450); Red Blood Cell (RBC) Count 3.42 10x6/uL (4.32-5.72); White Blood Cell (WBC) Count 9.1 10x3/uL (3.5-10.5)
[2022-01-17 21:09] LABS: ALT (SGPT) 17 U/L (8-55); AST (SGOT) 30 U/L (5-34); Alkaline Phosphatase 40 U/L (40-110); Anion Gap 14 mmol/L (10-20); BUN (Urea Nitrogen) 26 mg/dL (8.4-25.7); Bilirubin, Total 0.5 mg/dL (0.2-1.2); Calc. Creatinine Clearance 0 mL/min (70-130); Calcium 8.7 mg/dL (7.8-10.44); Carbon Dioxide 27 mmol/L (23-31); Chloride 98 mmol/L (98-107); Estimated GFR 50; Globulin 3.8 g/dL (2.4-3.5); Glucose 192 mg/dL (83-110); Potassium 3.7 mmol/L (3.5-5.1); Protein, Total 6.8 g/dL (5.8-8.1); Sodium 135 mmol/L (136-145)
== END 2022-01-18 01:57 ==
LOC: CSHERS 17:47
DX: E11.65 Type 2 diabetes mellitus with hyperglycemia (principal); E11.22 Type 2 diabetes mellitus with diabetic chronic kidney disease; I12.9 Hypertensive chronic kidney disease with stage 1 through stage 4 chronic kidney disease, or unspecified chronic kidney disease; N18.9 Chronic kidney disease, unspecified
CPT/HCPCS: 36415; 36416; 80053; 82550; 85025; 99285

== ENCOUNTER 2022-03-18 09:24 | Emergency (ER) | payer MEDICARE, MEDICAID ==
[2022-03-18 10:02] LABS: #Basophils 0.1 10x3/uL (0.0-0.2); #Eosinphils 0.2 10x3/uL (0.0-0.5); #Monocytes 0.8 10x3/uL (0.0-1.1); #Neutrophils 9.9 10x3/uL (1.5-8.4); %Basophils 0.5 % (0.0-2.0); %Eosinophils 1.8 % (0.0-6.0); %Lymphocytes 12.9 % (18.0-47.0); %Monocytes 6.1 % (0.0-10.0); %Neutrophils 78.5 % (40.0-75.0); Hemoglobin 13.1 g/dL (13.5-17.5); Mean Corpuscular HGB CONC 33.9 g/dL (32.0-36.0); Mean Corpuscular Hemoglobin 32.3 pg (27.0-33.0); Mean Corpuscular Volume 95.3 fl (81.2-95.1); Mean Platelet Volume 9.1 fl (7.4-10.4); Platelet Count 300 10x3/uL (150-450); RBC Distribution Width 13.9 % (11.5-14.5); Red Blood Cell (RBC) Count 4.05 10x6/uL (4.32-5.72); White Blood Cell (WBC) Count 12.7 10x3/uL (3.5-10.5)
[2022-03-18 10:09] LABS: INR-International Normal Ratio 1.1; PTT 25.1 sec (22.0-33.0); Prothrombin Time 11.9 sec (9.5-12.1)
[2022-03-18 10:11] LABS: ALT (SGPT) 9 U/L (8-55); AST (SGOT) 23 U/L (5-34); Albumin 3.4 g/dL (3.4-4.8); Alkaline Phosphatase 34 U/L (40-110); Anion Gap 12 mmol/L (10-20); BUN (Urea Nitrogen) 20 mg/dL (8.4-25.7); Bilirubin, Total 0.7 mg/dL (0.2-1.2); CK (CPK) 185 U/L (30-200); Calc. Creatinine Clearance 0 mL/min (70-130); Calcium 9.2 mg/dL (7.8-10.44); Carbon Dioxide 27 mmol/L (23-31); Chloride 102 mmol/L (98-107); Estimated GFR 63; Globulin 3.6 g/dL (2.4-3.5); Glucose 126 mg/dL (83-110); Potassium 3.5 mmol/L (3.5-5.1); Sodium 137 mmol/L (136-145)
[2022-03-18 10:31] LABS: CKMB 2.7 ng/mL (0-6.6)
[2022-03-18 11:39] LABS: Bilirubin Neg (Negative); Blood, Urine Negative (Negative); Clarity Clear (Clear); Glucose, Urine (Dipstick) Normal (Negative); Ketone, Urine Negative (Negative); Leukocyte Negative (Negative); Nitrite Negative (Negative); Protein, Urine (Dipstick) Negative (Neg-Trace); Specific Gravity, Urine 1.005 (1.005-1.030); Urobilinogen Normal mg/dL (Less than 2)
[2022-03-18] MEDS ORDERED: Iopamidol 370 76% 100 ML VIAL ONE (11:54)
[2022-03-18 12:24] LABS: SARS-CoV-2 NAA Rapid Test Not Detected (NotDetected)
== END 2022-03-18 14:28 | disposition home or self-care (01) ==
LOC: CSHERS 09:24
DX: F03.90 Unspecified dementia, unspecified severity, without behavioral disturbance, psychotic disturbance, mood disturbance, and anxiety (principal); R41.82 Altered mental status, unspecified; E78.5 Hyperlipidemia, unspecified; E03.9 Hypothyroidism, unspecified; I12.9 Hypertensive chronic kidney disease with stage 1 through stage 4 chronic kidney disease, or unspecified chronic kidney disease; N18.9 Chronic kidney disease, unspecified; E11.22 Type 2 diabetes mellitus with diabetic chronic kidney disease; Z20.822 Contact with and (suspected) exposure to COVID-19
CPT/HCPCS: 0042T; 36415; 70450; 71045; 80053; 81003; 82140; 82550; 82553; 83605; 83690; 84484; 85025; 85610; 85730; 93005

== ENCOUNTER 2022-03-18 18:34 | Inpatient (IN) | payer MEDICARE, MEDICAID ==
[2022-03-18 19:49] LABS: #Basophils 0.1 10x3/uL (0.0-0.2); #Eosinphils 0.2 10x3/uL (0.0-0.5); #Monocytes 1.3 10x3/uL (0.0-1.1); #Neutrophils 14.2 10x3/uL (1.5-8.4); %Basophils 0.5 % (0.0-2.0); %Eosinophils 0.9 % (0.0-6.0); %Monocytes 7.1 % (0.0-10.0); Hemoglobin 12.6 g/dL (13.5-17.5); Mean Corpuscular HGB CONC 34.2 g/dL (32.0-36.0); Mean Corpuscular Hemoglobin 32.5 pg (27.0-33.0); Mean Corpuscular Volume 94.8 fl (81.2-95.1); Mean Platelet Volume 9.2 fl (7.4-10.4); Platelet Count 298 10x3/uL (150-450); Red Blood Cell (RBC) Count 3.88 10x6/uL (4.32-5.72); White Blood Cell (WBC) Count 17.7 10x3/uL (3.5-10.5)
[2022-03-18 20:04] LABS: ALT (SGPT) 10 U/L (8-55); AST (SGOT) 28 U/L (5-34); Albumin 3.4 g/dL (3.4-4.8); Alkaline Phosphatase 34 U/L (40-110); Anion Gap 13 mmol/L (10-20); BUN (Urea Nitrogen) 20 mg/dL (8.4-25.7); Bilirubin, Total 0.9 mg/dL (0.2-1.2); Calc. Creatinine Clearance 0 mL/min (70-130); Calcium 9.5 mg/dL (7.8-10.44); Carbon Dioxide 23 mmol/L (23-31); Chloride 104 mmol/L (98-107); Estimated GFR 53; Globulin 3.9 g/dL (2.4-3.5); Glucose 164 mg/dL (83-110); Potassium 3.1 mmol/L (3.5-5.1); Protein, Total 7.3 g/dL (5.8-8.1); Sodium 137 mmol/L (136-145)
[2022-03-18 21:03] LABS: SARS-CoV-2 NAA Rapid Test Not Detected (NotDetected)
[2022-03-18] MEDS ORDERED: Bisacodyl 5 MG TAB PO PRN (21:38)
[2022-03-18] MEDS ORDERED: Guaifenesin DM 100-10/5 ML UDCUP PO PRN (21:38)
[2022-03-18] MEDS ORDERED: Calcium Carbonate 500 MG ChewTAB PO PRN (21:38)
[2022-03-18] MEDS ORDERED: Acetaminophen 325 MG TAB PO PRN (21:38)
[2022-03-18] MEDS ORDERED: Bisacodyl 10 MG SUPP PR PRN (21:38)
[2022-03-18] MEDS ORDERED: Acetaminophen 650 MG Suppository PR PRN (21:38)
[2022-03-18] MEDS ORDERED: Dextrose 5% in Water 1,000 ML IV PRN (21:38)
[2022-03-18] MEDS ORDERED: Senokot S 8.6-50 MG TAB PO PRN (21:38)
[2022-03-18] MEDS ORDERED: Dextrose 50% Abboject 50 ML SYRINGE SLOW IVP PRN (21:38)
[2022-03-18] MEDS ORDERED: Ondansetron PF 4 MG/2 ML Vial IVP PRN (21:38)
[2022-03-18] MEDS ORDERED: HumaLOG 300 UNITS/3 ML VIAL SC PRN (21:40)
[2022-03-18] MEDS ORDERED: levETIRAcetam 500 MG/5 ML VIAL ONE (22:25)
[2022-03-18] MEDS ORDERED: Lactated Ringer's 500 ML IV SCH (23:59)
[2022-03-18] MEDS ORDERED: Haloperidol Lactate 5 MG/ML VIAL IM SCH (23:59)
[2022-03-19] MEDS: Famotidine/PF 20 mg/2ml Vial SLOW IVP SCH ×3 (00:02→23:31)
[2022-03-19] MEDS: Potassium Chloride 20 MEQ in Premix Bag 1 BAG IVPB SCH ×2 (00:02→02:10)
[2022-03-19] MEDS ORDERED: Lactated Ringer's 1,000 ML IV SCH (00:30)
[2022-03-19 04:05] LABS: #Basophils 0.1 10x3/uL (0.0-0.2); #Eosinphils 0.1 10x3/uL (0.0-0.5); #Monocytes 0.9 10x3/uL (0.0-1.1); #Neutrophils 10.9 10x3/uL (1.5-8.4); %Basophils 0.4 % (0.0-2.0); %Eosinophils 0.5 % (0.0-6.0); %Lymphocytes 14.6 % (18.0-47.0); %Monocytes 6.6 % (0.0-10.0); %Neutrophils 77.5 % (40.0-75.0); Hemoglobin 11.7 g/dL (13.5-17.5); Mean Corpuscular HGB CONC 33.8 g/dL (32.0-36.0); Mean Corpuscular Hemoglobin 32.1 pg (27.0-33.0); Mean Corpuscular Volume 94.8 fl (81.2-95.1); Mean Platelet Volume 9.4 fl (7.4-10.4); Platelet Count 286 10x3/uL (150-450); RBC Distribution Width 13.8 % (11.5-14.5); Red Blood Cell (RBC) Count 3.65 10x6/uL (4.32-5.72)
[2022-03-19 04:21] LABS: Anion Gap 13 mmol/L (10-20); BUN (Urea Nitrogen) 18 mg/dL (8.4-25.7); CK (CPK) 832 U/L (30-200); Calc. Creatinine Clearance 60 mL/min (70-130); Carbon Dioxide 21 mmol/L (23-31); Chloride 107 mmol/L (98-107); Estimated GFR 69; Glucose 122 mg/dL (83-110); Magnesium 1.1 mg/dL (1.6-2.6); Potassium 3.5 mmol/L (3.5-5.1); Sodium 137 mmol/L (136-145)
[2022-03-19 04:40] LABS: Cardiac Risk 4.5 (Less than 4.5); Cholesterol 136 mg/dl (< 200 Desired); HDL Cholesterol 30 mg/dL (>60 Neg Risk); LDL Cholesterol, Calculated 84 mg/dL; Thyroid Stimulating Hormone 1.9969 uIU/mL (0.35-4.94); Triglycerides 111 mg/dL (Less than 150)
[2022-03-19] MEDS: Levothyroxine Sodium 125 MCG TAB PO SCH (05:08)
[2022-03-19] MEDS: Aspirin 81 mg Enteric Coated Tablet PO SCH (08:03)
[2022-03-19] MEDS: Folic Acid 1 MG TAB PO SCH (08:07)
[2022-03-19] MEDS: Finasteride 5 MG TAB PO SCH (08:07)
[2022-03-19] MEDS: Tamsulosin HCl 0.4 MG CAP PO SCH (08:08)
[2022-03-19] MEDS: Thiamine 100 MG TAB PO SCH (08:08)
[2022-03-19] MEDS: Multivitamin W/ Minerals 1 TAB PO SCH (08:08)
[2022-03-19] MEDS: Magnesium Oxide 400 MG TAB PO SCH (08:08)
[2022-03-19] MEDS: levETIRAcetam 500 MG/5 ML VIAL SLOW IVP SCH ×2 (08:16→20:30)
[2022-03-19] MEDS ORDERED: FENOFIBRATE MICRONIZED 200 MG PO SCH (09:00)
[2022-03-19 12:45] LABS: Hemoglobin A1c 6.1 % (4.0-6.0)
[2022-03-19] MEDS ORDERED: Atorvastatin Calcium 20 MG TAB PO SCH (21:00)
[2022-03-19 21:33] VITALS: BMI 24.0
[2022-03-20] MEDS: Levothyroxine Sodium 125 MCG TAB PO SCH (05:24)
[2022-03-20] MEDS: levETIRAcetam 500 MG/5 ML VIAL SLOW IVP SCH (09:27)
[2022-03-20] MEDS: Magnesium Oxide 400 MG TAB PO SCH (09:27)
[2022-03-20] MEDS: Finasteride 5 MG TAB PO SCH (09:28)
[2022-03-20] MEDS: Thiamine 100 MG TAB PO SCH (09:28)
[2022-03-20] MEDS: Folic Acid 1 MG TAB PO SCH (09:28)
[2022-03-20] MEDS: Multivitamin W/ Minerals 1 TAB PO SCH (09:28)
[2022-03-20] MEDS: Aspirin 81 mg Enteric Coated Tablet PO SCH (09:28)
[2022-03-20] MEDS: Tamsulosin HCl 0.4 MG CAP PO SCH (09:28)
[2022-03-20] MEDS: Famotidine/PF 20 mg/2ml Vial SLOW IVP SCH (11:20)
[2022-03-20 11:52] VITALS: TEMP 97.8
[2022-03-20 13:00] VITALS: BP 158/89
== END 2022-03-20 16:56 | DRG 100 ==
LOC: CSHERS 18:34 → CSHICU 23:17
PROVIDERS: ADMIT Student in an Organized Health Care Education/Training Program; ATTEND Internal Medicine
PROC: 4A10X4Z Monitoring of Central Nervous Electrical Activity, External Approach (ICD-10-PCS; principal; 2022-03-20)
DX: G40.909 Epilepsy, unspecified, not intractable, without status epilepticus (principal); G93.41 Metabolic encephalopathy; F03.918 Unspecified dementia, unspecified severity, with other behavioral disturbance; N17.9 Acute kidney failure, unspecified; I45.10 Unspecified right bundle-branch block; E78.5 Hyperlipidemia, unspecified; E03.9 Hypothyroidism, unspecified; Z51.5 Encounter for palliative care; F03.90 Unspecified dementia, unspecified severity, without behavioral disturbance, psychotic disturbance, mood disturbance, and anxiety; K21.9 Gastro-esophageal reflux disease without esophagitis; N40.0 Benign prostatic hyperplasia without lower urinary tract symptoms; E11.65 Type 2 diabetes mellitus with hyperglycemia; D72.829 Elevated white blood cell count, unspecified; E87.6 Hypokalemia; I12.9 Hypertensive chronic kidney disease with stage 1 through stage 4 chronic kidney disease, or unspecified chronic kidney disease; E11.22 Type 2 diabetes mellitus with diabetic chronic kidney disease; D63.1 Anemia in chronic kidney disease; Z66 Do not resuscitate; N18.30 Chronic kidney disease, stage 3 unspecified; E83.42 Hypomagnesemia; Z20.822 Contact with and (suspected) exposure to COVID-19; Z79.899 Other long term (current) drug therapy; Z98.890 Other specified postprocedural states; Z79.82 Long term (current) use of aspirin; R41.82 Altered mental status, unspecified
CPT/HCPCS: 0042T; 36415; 36416; 51701; 70450; 71045; 80048; 80053; 80061; 81003; 82140; 82550; 82553; 82607; 83036; 83605; 83690; 83735; 84443; 84484; 85025; 85610; 85730; 93005; 95816; 95819; 95957; 96360; 96361; 96374; J1630; J1650; J1953; J3480; J7120; Q9967; S0028; U0002